=== PATIENT | female | born 1940 | race Caucasian/White ===

== ENCOUNTER 2017-08-21 09:07 | Day surgery (SDC) | payer MEDICARE, OTHER ==
[2017-08-20 09:05] VITALS: BMI 25.0
[~2017-08-21 09:07] MED LIST: ALPRAZolam 0.25 MG TAB PO PRN; ALPRAZolam 0.5 MG TAB PO PRN; NITROGLYCERIN SL TABS 0.4 MG TAB SUBLINGUAL PRN; SODIUM CHLORIDE 0.9% 1,000 ML in EMPTY BAG 1 BAG IV ONE
[2017-08-21] MEDS ORDERED: MIDAZOLAM 2 MG/2 ML VIAL ONE (09:51)
[2017-08-21] MEDS ORDERED: VERAPAMIL 2.5 MG/ML 2 ML AMP ONE (09:51)
[2017-08-21] MEDS ORDERED: HEPARIN SODIUM 1,000 UN/ML (10ML VL) ONE (09:52)
[2017-08-21] MEDS ORDERED: LIDOCAINE 2% INJ 20 MG/ML (20 ML MDV) ONE (09:52)
[2017-08-21 09:57] VITALS: RESP 16; TEMP 98.3
[2017-08-21 10:19] LABS: Basophils % (A) 1 %; Eosinophils # (A) 0.1 k/uL (0-0.7); Eosinophils % (A) 2 %; HCT 39.6 % (34.0-46.0); HGB 13.4 gm/dL (11.4-16.0); Lymphocytes # (A) 1.7 k/uL (1.0-4.8); Lymphocytes % (A) 39 %; MCH 31.3 pg (25.0-35.0); MCHC 33.9 g/dL (31.0-37.0); MCV 92.2 fL (80.0-100.0); Mean Platelet Volume 7.2; Monocytes # (A) 0.3 k/uL (0-1.0); Monocytes % (A) 6 %; Neutrophils # (A) 2.2 k/uL (1.3-7.7); Neutrophils % (A) 50 %; Platelet Count 165 k/uL (150-450); RBC 4.29 m/uL (3.80-5.40); RDW 12.3 % (11.5-15.5); WBC 4.4 k/uL (3.8-10.6)
[2017-08-21 10:32] LABS: Anion Gap 9 mmol/L; Blood Urea Nitrogen 21 mg/dL (7-17); Calcium 9.2 mg/dL (8.4-10.2); Carbon Dioxide 25 mmol/L (22-30); Chloride 105 mmol/L (98-107); Glucose 94 mg/dL (74-99); Potassium 4.5 mmol/L (3.5-5.1); Sodium 139 mmol/L (137-145)
[2017-08-21] MEDS ORDERED: diphenhydrAMINE 50 MG/ML 1 ML VIAL ONE (10:34)
[2017-08-21] MEDS ORDERED: MIDAZOLAM 2 MG/2 ML VIAL IVP ONE (10:39)
[2017-08-21] MEDS ORDERED: diphenhydrAMINE 50 MG/ML 1 ML VIAL IVP ONE (10:39)
[2017-08-21] MEDS ORDERED: LIDOCAINE 2% INJ 20 MG/ML SQ ONE ×2 (10:48→10:50)
[2017-08-21] MEDS ORDERED: VERAPAMIL SYRINGE (5 MG/10 ML) INTRAARTER ONE ×2 (10:50→11:03)
[2017-08-21] MEDS ORDERED: NITROGLYCERIN 1000MCG/10ML SYRINGE INTRACORON ONE (10:55)
[2017-08-21] MEDS ORDERED: NITROGLYCERIN 1000MCG/10ML SYRINGE INTRAARTER ONE (11:02)
[2017-08-21] MEDS ORDERED: IOHEXOL 350 MG/ML (PER ML) 100ML BTL INJ ONE (11:04)
[2017-08-21] MEDS ORDERED: IODIXANOL 320 MG/ML 100 ML INTRAARTER ONE (11:04)
[2017-08-21] MEDS ORDERED: SODIUM CHLORIDE 0.9% 1,000 ML IV SCH (12:00)
--- NOTE | 2017-08-21 12:03 | CC ---
CARDIAC CATHETERIZATION REPORT DATE OF SERVICE: 08/21/2017. PROCEDURE: Left heart catheterization and coronary angiography. PERFORMED BY: Dr. Mani Dickson. Moderate conscious sedation time was 20 minutes with a combination of Versed and Benadryl. Patient was monitored closely. CLINICAL INFORMATION: Mrs. Ria Leon is a 76-year-old lady with a history of vasospastic angina, hypertension, hyperlipidemia, who has been having discomfort in the chest and also in the back between her shoulder blades. She has this come on with exertion, has taken several nitroglycerin. I first performed a CT scan of the chest and there was no evidence of any aortic pathology or pulmonary embolism. She was brought in for the procedure after due discussion regarding risks, benefits, options and rationale. PROCEDURE NOTE: Under local anesthesia and strict aseptic precautions, a 6-Occitan introducer was placed in the right radial artery. Using a 3.5 curved left and right Ke catheters, I performed coronary angiography. The pigtail catheter was used to check LV pressures. LV gram was not performed. The sheath was taken out and a Vasc band applied as per protocol with good hemostasis and saturation in the fingers of the right hand was 92%. The patient tolerated procedure well without complications. Results were discussed with the patient and family. CARDIAC CATHETERIZATION FINDINGS: The left ventricle end-diastolic pressure was about 15 mmHg without any gradient across the aortic valve. CORONARY ANGIOGRAPHY FINDINGS: RIGHT CORONARY ARTERY: Large vessel, a codominant vessel distally bifurcates into PDA and PLV, but both of these are actually small in caliber and distribution, but the RCA itself is of good caliber, has no significant disease. There is no evidence of any spasm. LEFT MAIN CORONARY ARTERY: Short patent disease-free vessel that bifurcates into LAD and circumflex. LEFT ANTERIOR DESCENDING CORONARY ARTERY: Good caliber vessel extends along the antral wall, giving off septal and diagonal branches. There is no significant disease other than minor irregularities. The vessel curves over the apex to supply the inferoapical portion of left ventricle. LEFT POSTERIOR CIRCUMFLEX CORONARY ARTERY: This is almost a codominant vessel gives off a large obtuse marginal that runs laterally, bifurcates into 2 branches supplies a fair amount of myocardium. The branch in the AV groove has also minor irregularities. No significant disease. LEFT VENTRICULOGRAM: This was not performed. FINAL IMPRESSION: This patient has no significant obstructive coronary artery disease. She has probably a right dominant or codominant system with normal filling pressures. By echo, left ventricular function was normal. We did not perform LV gram here. Her pain in the chest is probably coming from noncardiac causes. She had a CAT scan of the chest as well, which did not reveal any significant abnormalities. Results were discussed with the patient and family. She will be discharged later on today. ANASTASIYA / MAYTEN: [id number] /
--- NOTE | 2017-08-21 12:03 | LTR ---
August 21, [address] Yang: Thank you for the opportunity to participate in the care of Mrs. Leon. Please find enclosed my detailed cardiac cath report for your records. I am recommending that we should perform workup for noncardiac causes including ultrasound of the gallbladder and upper GI series to rule out any GI pathology. She does not have any obstructive CAD and LV function by echo is good. Thank you for a referral and please call for questions. With kindest regards. Sincerely yours. MD ANASTASIYA Ingram / GUI: [id number] /
[2017-08-21] MEDS ORDERED: ISOSORBIDE MONONITRATE ER 60 MG TAB.ER.24H PO STA ×2 (13:52→13:56)
[2017-08-21] MEDS ORDERED: ISOSORBIDE MONONITRATE ER 60 MG TAB.ER.24H PO SCH (14:00)
[2017-08-21 17:23] VITALS: BP 156/70; PULSE 72
[2017-08-21] MEDS ORDERED: LOVASTATIN 20 MG PO SCH (21:00)
[2017-08-21] MEDS ORDERED: CALCIUM CARB-VIT D 500MG-200UN 1 EACH TAB PO SCH (21:00)
[2017-08-22] MEDS ORDERED: PANTOPRAZOLE 40 MG TABLET PO SCH (07:30)
[2017-08-22] MEDS ORDERED: ASPIRIN 81 MG PO SCH (09:00)
[2017-08-22] MEDS ORDERED: METOPROLOL TARTRATE 25 MG TAB PO SCH (09:00)
[2017-08-22] MEDS ORDERED: LEVOTHYROXINE 75 MCG TAB PO SCH (09:00)
[2017-08-22] MEDS ORDERED: MULTIVITAMINS, THERA 1 EACH TAB PO SCH (12:00)
== END 2017-08-21 17:15 | disposition home or self-care (01) ==
LOC: CATHCVL 09:07
PROVIDERS: ATTEND Internal Medicine Interventional Cardiology
DX: I20.0 Unstable angina (principal); I10 Essential (primary) hypertension; E78.00 Pure hypercholesterolemia, unspecified; Z82.49 Family history of ischemic heart disease and other diseases of the circulatory system; Z79.82 Long term (current) use of aspirin; Z79.899 Other long term (current) drug therapy; Z88.6 Allergy status to analgesic agent; Z88.8 Allergy status to other drugs, medicaments and biological substances; E78.5 Hyperlipidemia, unspecified
CPT/HCPCS: 93458; 80048; 85025; C1894; J2001; J2250; J1200; Q9967; J1644

== ENCOUNTER → 2018-03-23 | Outpatient (CLI) | payer MEDICARE ==
[2018-03-23 06:25] LABS: HCT 39.3 % (34.0-46.0); HGB 13.1 gm/dL (11.4-16.0); MCH 31.6 pg (25.0-35.0); MCHC 33.2 g/dL (31.0-37.0); MCV 95.2 fL (80.0-100.0); Mean Platelet Volume 6.5; Platelet Count 218 k/uL (150-450); RBC 4.12 m/uL (3.80-5.40); RDW 12.8 % (11.5-15.5); WBC 5.6 k/uL (3.8-10.6)
[2018-03-23 06:30] LABS: ALT 21 U/L (9-52); AST 26 U/L (14-36); Albumin 4.1 g/dL (3.5-5.0); Alkaline Phosphatase 54 U/L (38-126); Anion Gap 5 mmol/L; Blood Urea Nitrogen 18 mg/dL (7-17); Calcium 9.5 mg/dL (8.4-10.2); Carbon Dioxide 31 mmol/L (22-30); Chloride 103 mmol/L (98-107); Cholesterol 183 mg/dL (<200); Glucose 91 mg/dL (74-99); HDL Cholesterol 78 mg/dL (40-60); LDL Cholesterol,Calculated 90 mg/dL (0-99); Potassium 4.2 mmol/L (3.5-5.1); Sodium 139 mmol/L (137-145); Total Bilirubin 0.6 mg/dL (0.2-1.3); Triglycerides 73 mg/dL (<150)
== END | disposition home or self-care (01) ==
LOC: LABMAIN 04:37
PROVIDERS: ATTEND Internal Medicine
DX: E78.4 Other hyperlipidemia (principal); E87.8 Other disorders of electrolyte and fluid balance, not elsewhere classified; R53.83 Other fatigue
CPT/HCPCS: 36415; 80053; 80061; 84443; 85027

== ENCOUNTER → 2019-04-15 | Outpatient (CLI) | payer MEDICARE ==
--- NOTE | 2019-04-15 15:06 | XR ---
Facial bones HISTORY: Trauma and pain 3 views of facial bones Bone mineralization is maintained. Orbits are intact. No evident air-fluid level in the paranasal sin uses. Bone mineralization is maintained. IMPRESSION: No acute abnormality. CT scan could be performed for increased sensitivity as indicated.
== END ==
LOC: RADXRMAIN 14:30
PROVIDERS: ATTEND Family Medicine
DX: S05.90XA Unspecified injury of unspecified eye and orbit, initial encounter (principal)
CPT/HCPCS: 70150

== ENCOUNTER → 2023-07-29 | Outpatient (CLI) | payer MEDICARE ==
[2023-07-29 10:58] VITALS: BP 128/72; PULSE 76; RESP 15; TEMP 98.2
--- NOTE | 2023-07-29 14:42 | P.PAINPG ---
PQRS Measure Charge Sheet Comment: HISTORY OF PRESENT ILLNESS: A 82 yr old female w daughter at side as a referral from Dr Rodriguez presents today w severe and chronic headache and neck pain x 1 yr secondary to DDD, spondylosis and facet arthropathy without myelopathy for evaluation. Pt states pain level is provoked at 10/10 in intensity, constant, localized in the base of the head, predominantly axial, sharp in character w occasional shooting pain towards the eye brows. Pain is provoked by flexion. Pain is alleviated by ice, medications (Tyl), manual massage, repositioning and rest. Cervical disability score at 31. PMH: OA, Hypothyroid Disorder PSH: Cholecystectomy, Heart Catheterization, Hysterectomy, Tonsillectomy SH: Negative x3 FH: Non contributory All: See list Meds: See list REVIEW OF ORGAN SYSTEMS: CONSTITUTIONAL: No fevers or chills. No recent weight loss. NEUROLOGICAL: + numbness and tingling along the distal extremities. No seizure disorders or headaches. MUSCULOSKELETAL: + pain PSYCHIATRIC: Denies current depression or suicidal thoughts. Physical Examinations : Constitutional : Cooperative , not in acute distress . Neurologic : Cranial nerve II to XII intact. No focal neurological deficits. Psychiatric : alert & oriented x 3. Matching mood & appropriate affect. Judgment & insight intact. Musculoskeletal : Cervical Spine +BL CRISTINE TTP Motor strength in the deltoid and biceps: Normal right side. Normal Left side Motor strength biceps and the wrist extensors: Normal right side . Normal left side Motor strength in the triceps muscle: Normal right side. Normal left side Deep tendon reflexes: Normal at the biceps. Normal at Brachioradialis. Normal at triceps Vertebral body tenderness to deep palpation over Cervical facet loading test: positive bilaterally Spurling test: positive bilaterally Neck distraction test: positive bilaterally Steven sign: positive bilaterally Lumbar spine Motor strength lower extremities ,thigh and legs 5/5 Right side , 5/5 Left side Deep tendon reflexes : Normal Knee Jerk. Normal Ankle Jerk Vertebral body tenderness over Coombs Test positive Lumbar facet Loading Test: positive Right / positive Left Range of motion of the lumbar spine Flexion 30 degrees, extension 10 degrees Straight Leg Raise test: Left/ Right positive at degrees Eber test: positive right / positive left. Severe tenderness over the Sacroiliac joint on the Right / Left sides Gaenslen test: positive bilaterally Seated flexion test: positive bilaterally. Sacral spine : Severe tenderness over the Sacroiliac joint: right side / left side Range of motion: Flexion of the lumbar spine <60 degrees Range of motion: Extension of the lumbar spine <20 degrees Gaenslen's Test positive Eber test: positive right side / left side Thigh Thrust Test Sacral Thrust Test Imaging: CT noncontrast of the head from 07/28/22. CT noncontrast of the cervical spine from 07/28/22 reviewed Assessment/ Plan : Cervical DDD Recommendation of BL CRISTINE injections #1. May need a series of injections for optimal pain relief. Risks, benefits of procedure discussed and patient verbalized understanding. Admits to anti- coagulant use or medical history of diabetes. Protocol for discontinuation/ continuation of medications jayshree procedure discussed. All questions answered. I have spent greater than 30 minutes on patient care today. Dr Pandya was available by phone for the evaluation of this patient. The time was used to review the medical records including relevant urine studies and Prescription history (MAPs), review of the available imaging, evaluation and examination of the patient, coordination of care with the medical staff and if applicable referring physicians, as well as creation of the medical record PQRS Narrative: Smoking Status Never smoker Home Medications: Ambulatory Orders Aspirin 81 mg PO DAILY 10/29/13 Calcium Carbonate/Vitamin D3 [Os-Marco 500+D3 Caplet] 1 tab PO BID 10/29/13 Isosorbide Mononitrate [Imdur] 120 mg PO W/LUNCH 10/29/13 Lansoprazole [Prevacid] 30 mg PO DAILY 10/29/13 Levothyroxine Sodium [Synthroid] 75 mcg PO DAILY 10/29/13 Lovastatin [Mevacor] 20 mg PO HS 10/29/13 Multivitamin [Multivitamins] 1 each PO DAILY 10/29/13 Brimonidine Tartrate [Alphagan P 0.2% Ophth Soln] 1 drops BOTH EYES BID 08/20/17 Metoprolol Tartrate [Lopressor] 25 mg PO DAILY 08/20/17 Controlled Substance Measures - Controlled Substance Measures Is patient prescribed a controlled substance at discharge?: No
== END ==
LOC: PNWHC3 09:37
PROVIDERS: ATTEND Anesthesiology
DX: M54.81 Occipital neuralgia (principal); M50.30 Other cervical disc degeneration, unspecified cervical region; Z88.5 Allergy status to narcotic agent; Z88.3 Allergy status to other anti-infective agents; Z88.1 Allergy status to other antibiotic agents; Z79.82 Long term (current) use of aspirin
CPT/HCPCS: 99211

== ENCOUNTER → 2023-09-01 | Day surgery (SDC) | payer MEDICARE ==
[~2023-09-01] MED LIST changes: -ALPRAZolam 0.25 MG TAB PO PRN; -ALPRAZolam 0.5 MG TAB PO PRN; +LACTATED RINGERS 1,000 ML IV SCH; -NITROGLYCERIN SL TABS 0.4 MG TAB SUBLINGUAL PRN; +ROPIVACAINE 5MG/ML 20ML VIAL ONE; -SODIUM CHLORIDE 0.9% 1,000 ML in EMPTY BAG 1 BAG IV ONE; +methylPREDNISolone ACETATE 40 MG/ML 1 ML VIAL ONE
[2023-09-01 10:57] VITALS: TEMP 98.1
--- NOTE | 2023-09-01 11:17 | P.PCN ---
Date of Procedure: 09/01/23 Procedure(s) Performed: Preoperative diagnoses= 1- Greater occipital neuralgia. 2-cervicogenic headache. Postoperative diagnoses= 1-greater occipital neuralgia. 2-cervicogenic headache. Procedure= Bilateral Greater occipital nerve block Anesthesia= none. . Estimated blood loss=minimal. Procedure indication= the patient had a history of severe chronic neck pain ,and headache, diagnosed with occipital neuralgia exam was positive for severe tenderness over the occipital nerve bilaterally, she will be a good candidate occipital nerve block, patient failed conservative management Procedure description= the patient was seen and identified in the preoperative holding area, risks and benefits and alternative of the procedure and possible complications discussed with the patient, and he agreed with the preceding, patient signed the consent, an IV was started, and vital signs were monitored and were stable throughout the procedure, patient was placed in the sitting position or table and the neck area was prepped and draped with a sterile fashion, vital signs were closely monitored during the procedure, 25-gauge needle advanced 1 inch lateral to the occipital protuberance on the right side, at the location of the right occipital nerve , then after negative aspiration for heme and CSF and there was no paresthesia during the injection, 6 ml of Robivacaine 0.5% and 20 mg of Depo-Medrol injected after negative aspiration, the needle removed, and the entire same procedure was repeated for the left Greater occipital nerve. Patient tolerated the procedure well without any complication, The patient returned to supine position after the back was cleaned and a Band- Aid applied, the patient transported to recovery room in stable condition and he was monitored for 30 minutes before he was discharged home and then patient was reexamined before going home and patient was discharged in stable condition and patient will follow up with the pain clinic in a few weeks.
[2023-09-01 11:34] VITALS: RESP 16
[2023-09-01 12:06] VITALS: BP 150/69; PULSE 67
== END ==
LOC: ORPAIN 09:47
PROVIDERS: ATTEND Specialist
DX: M54.81 Occipital neuralgia (principal); Z88.6 Allergy status to analgesic agent; Z88.8 Allergy status to other drugs, medicaments and biological substances; Z79.82 Long term (current) use of aspirin
CPT/HCPCS: 64405; J1030; J2795

== ENCOUNTER → 2023-09-16 | Outpatient (CLI) | payer MEDICARE ==
[2023-09-16 10:22] VITALS: RESP 16
[2023-09-16 11:01] VITALS: BP 145/71; PULSE 98; TEMP 97.6
--- NOTE | 2023-09-16 13:52 | P.PAINPG ---
PQRS Measure Charge Sheet Comment: HISTORY OF PRESENT ILLNESS: A 82 yr old female w daughter at side presents today w severe and chronic headache and neck pain x 1 yr secondary to occipital neuralgia and cervicogenic PIMENTEL for evaluation s/p BL CRISTINE injections #1. Pt states she experienced 100% pain relief x 2 wks s/p procedure. Pt states pain level is provoked at 1 /10 in intensity, constant, localized in the base of the head, predominantly axial, sharp in character w occasional shooting pain towards the eye brows. Pain is provoked by flexion. Pain is alleviated by ice, medications, manual massage, repositioning and rest. Cervical disability score at 23. Interventional procedures include BL CRISTINE injections #1 Medications include Tyl REVIEW OF ORGAN SYSTEMS: CONSTITUTIONAL: No fevers or chills. No recent weight loss. NEUROLOGICAL: + numbness and tingling along the distal extremities. No seizure disorders or headaches. MUSCULOSKELETAL: + pain PSYCHIATRIC: Denies current depression or suicidal thoughts. Physical Examinations : Constitutional : Cooperative , not in acute distress . Neurologic : Cranial nerve II to XII intact. No focal neurological deficits. Psychiatric : alert & oriented x 3. Matching mood & appropriate affect. Judgment & insight intact. Musculoskeletal : Cervical Spine +BL CRISTINE TTP Motor strength in the deltoid and biceps: Normal right side. Normal Left side Motor strength biceps and the wrist extensors: Normal right side . Normal left side Motor strength in the triceps muscle: Normal right side. Normal left side Deep tendon reflexes: Normal at the biceps. Normal at Brachioradialis. Normal at triceps Vertebral body tenderness to deep palpation over Cervical facet loading test: positive bilaterally Spurling test: positive bilaterally Neck distraction test: positive bilaterally Steven sign: positive bilaterally Lumbar spine Motor strength lower extremities ,thigh and legs 5/5 Right side , 5/5 Left side Deep tendon reflexes : Normal Knee Jerk. Normal Ankle Jerk Vertebral body tenderness over Coombs Test positive Lumbar facet Loading Test: positive Right / positive Left Range of motion of the lumbar spine Flexion 30 degrees, extension 10 degrees Straight Leg Raise test: Left/ Right positive at degrees Eber test: positive right / positive left. Severe tenderness over the Sacroiliac joint on the Right / Left sides Gaenslen test: positive bilaterally Seated flexion test: positive bilaterally. Sacral spine : Severe tenderness over the Sacroiliac joint: right side / left side Range of motion: Flexion of the lumbar spine <60 degrees Range of motion: Extension of the lumbar spine <20 degrees Gaenslen's Test positive Eber test: positive right side / left side Thigh Thrust Test Sacral Thrust Test Imaging: CT noncontrast of the head from 07/28/22. CT noncontrast of the cervical spine from 07/28/22 reviewed Assessment/ Plan : Cervical DDD, Occipital Neuralgia, Cervicogenic PIMENTEL Will manage residual pain and may RTC on an as needed basis. All questions answered. I have spent greater than 30 minutes on patient care today. Dr Pandya was available by phone for the evaluation of this patient. The time was used to review the medical records including relevant urine studies and Prescription history (MAPs), review of the available imaging, evaluation and examination of the patient, coordination of care with the medical staff and if applicable referring physicians, as well as creation of the medical record - Pain Location Neck Non-Pharmacological Interventions: Darkened Room, Position/Reposition PQRS Narrative: Smoking Status Never smoker Hx Alcohol Use (MH) No Home Medications: Ambulatory Orders Aspirin 81 mg PO DAILY 10/29/13 Calcium Carbonate/Vitamin D3 [Os-Marco 500+D3 Caplet] 1 tab PO BID 10/29/13 Isosorbide Mononitrate [Imdur] 120 mg PO W/LUNCH 10/29/13 Lansoprazole [Prevacid] 30 mg PO DAILY 10/29/13 Levothyroxine Sodium [Synthroid] 75 mcg PO DAILY 10/29/13 Lovastatin [Mevacor] 20 mg PO HS 10/29/13 Multivitamin [Multivitamins] 1 each PO DAILY 10/29/13 Brimonidine Tartrate [Alphagan P 0.2% Ophth Soln] 1 drops BOTH EYES BID 08/20/17 Metoprolol Tartrate [Lopressor] 25 mg PO DAILY 08/20/17 Ascorbic Acid [Vitamin C] 500 mg PO DAILY 08/25/23 Cholecalciferol [Vitamin D3 (25 Mcg = 1000 Iu)] 25 mcg PO DAILY 08/25/23 Fish Oil/Dha/Epa [Fish Oil 1,200 mg Fish Oil] 1 each PO DAILY 08/25/23 Glucosa Lacy 2Kcl/Chondroitin Lacy [Glucosamine-Chondroitin Cap] 1 each PO DAILY 08/25/23 Magnesium 200 mg PO DAILY 08/25/23 Rimegepant Sulfate [Nurtec Odt] 75 mg PO DIRECTED PRN 08/25/23 Zinc Gluconate [Zinc] 50 mg PO DAILY 08/25/23 Controlled Substance Measures - Controlled Substance Measures Is patient prescribed a controlled substance at discharge?: No
== END ==
LOC: PNWHC3 09:50
PROVIDERS: ATTEND Specialist
DX: M54.81 Occipital neuralgia (principal); M50.30 Other cervical disc degeneration, unspecified cervical region; G44.86 Cervicogenic headache; Z88.5 Allergy status to narcotic agent; Z88.1 Allergy status to other antibiotic agents; Z88.8 Allergy status to other drugs, medicaments and biological substances; Z79.82 Long term (current) use of aspirin
CPT/HCPCS: 99211